=== PATIENT | male | born 1970 | race Caucasian/White ===

== ENCOUNTER 2016-12-11 17:58 | Emergency (ER) | payer OTHER ==
[2016-12-11 18:07] VITALS: BP 130/85
[2016-12-11] MEDS ORDERED: HYDROcodone/ACETAMIN 5-325 MG* 1 TAB PO ONE (18:26)
--- NOTE | 2016-12-11 18:40 | UC ---
Elbow Pain - HPI Summary HPI Summary: ABOUT A MONTH AGO LIFTED A HEAVY HERNANDEZ OUT OF THE OVEN TO THE TABLE USING ONLY HIS RIGHT HAND/ARM. FELT A STRAIN. SINCE THEN THE PAIN HAS WORSENED. PAIN IS KEEPING HIM UP AT NIGHT. CAN'T EVEN START HIS CAR WITHOUT PAIN. - History of Current Complaint Chief Complaint: UCUpperExtremity Stated Complaint: R ELBOW PAIN Time Seen by Provider: 12/11/16 18:12 Hx Obtained From: Patient Onset/Duration: Weeks, Still Present Severity Initially: Moderate Severity Currently: Moderate Pain Intensity: 8 Pain Scale Used: 0-10 Numeric Location Of Pain: Is Discrete @ - RIGHT ELBOW Character: Sharp, Aching Aggravating Factor(s): Movement Alleviating Factor(s): Rest Associated Signs And Symptoms: Negative: Swelling, Redness, Bruising, Numbness/ Tingling - Allergies/Home Medications Allergies/Adverse Reactions: Allergies Allergy/AdvReac Type Severity Reaction Status Date / Time No Known Allergies Allergy Verified 12/13/13 16:07 Home Medications: Home Medications Ibuprofen [Advil] 600 mg PO 12/11/16 [History] PMH/Surg Hx/FS Hx/Imm Hx Previously Healthy: Yes - Surgical History Surgical History: Yes Surgery Procedure, Year, and Place: CHOLECYSTECTOMY - Family History Known Family History: Negative: Hypertension - Social History Alcohol Use: Rare Substance Use Type: None Smoking Status (MU): Never Smoked Tobacco Review of Systems Constitutional: Negative Skin: Negative Respiratory: Negative Cardiovascular: Negative Gastrointestinal: Negative Musculoskeletal: Arthralgia, Decreased ROM, Edema All Other Systems Reviewed And Are Negative: Yes Physical Exam Triage Information Reviewed: Yes Appearance: Well-Appearing, No Pain Distress, Well-Nourished Vital Signs: Initial Vital Signs Temp 96.9 F 12/11/16 18:04 Pulse 92 12/11/16 18:04 Resp 18 12/11/16 18:04 BP 130/85 12/11/16 18:04 Pulse Ox 99 12/11/16 18:04 Vital Signs Reviewed: Yes Eyes: Positive: Conjunctiva Clear ENT: Positive: Hearing grossly normal Neck: Positive: Supple Respiratory: Positive: No respiratory distress, No accessory muscle use Cardiovascular: Positive: Pulses Normal Abdomen Description: Positive: Soft Musculoskeletal: Positive: No Edema, ROM Limited @ - RIGHT ELBOW EXTENSION, Other: - TTP RIGHT LATERAL EPICONDYLE Neurological: Positive: Alert Psychological: Positive: Age Appropriate Behavior Skin: Negative: rashes Elbow Pain Course/Dx - Differential Dx/Diagnosis Provider Diagnoses: RIGHT LATERAL EPICONDYLITIS Discharge - Discharge Plan Condition: Stable Disposition: HOME Prescriptions: Hydrocodone-Acetaminophen [Lorcet 5-325 mg] 1 tab PO QID PRN #20 tab MDD 4 PRN Reason: Pain Patient Education Materials: Tennis Elbow (ED) Referrals: Meghana Velez MD [Primary Care Provider] - If Needed Josse Ireland MD [Medical Doctor] - 2 Weeks Additional Instructions: USE A COUNTERFORCE BRACE TO HELP WITH SYMPTOMS. REST - AVOID REPETITIVE MOTION. SLING NEEDED FOR COMFORT. OTC NSAIDS. IF YOUR SYMPTOMS ARE PERSISTENT FOLLOW- UP WITH ORTHO. YOU MAY BENEFIT FROM STEROID INJECTION.
== END 2016-12-11 18:45 | disposition home or self-care (01) ==
LOC: UCEAST 17:58
DX: M77.11 Lateral epicondylitis, right elbow (principal)
CPT/HCPCS: 99213; G0463

== ENCOUNTER 2017-04-24 12:16 | Emergency (ER) | payer OTHER ==
[2017-04-24 13:03] VITALS: BP 117/75
--- NOTE | 2017-04-24 13:29 | UC ---
Kj Rich Stephanie, scribed for Brennen Fontenot MD on 04/24/17 at 1317 . Ear Complaint HPI - HPI Summary HPI Summary: The pt is a 46 y/o M presenting to with c/o L ear pain that began on . Symptoms include productive cough, pain in the back of neck, SOB and chest congestion (started 4 days ago). The pt states his L ear pain is located behind his ear. The L ear pain is aggravated by cough. The pt denies dental and jaw pain. - History of Current Complaint Chief Complaint: UCEar Stated Complaint: EAR PAIN COUGH Time Seen by Provider: 04/24/17 13:06 Hx Obtained From: Patient Onset/Duration: Gradual Onset, Lasting Days - 2, Still Present Severity Currently: Moderate Pain Intensity: 8 Pain Scale Used: 0-10 Numeric Aggravating Factors: Nothing Alleviating Factors: Nothing - Allergies/Home Medications Allergies/Adverse Reactions: Allergies Allergy/AdvReac Type Severity Reaction Status Date / Time No Known Allergies Allergy Verified 04/24/17 13:03 PMH/Surg Hx/FS Hx/Imm Hx Previously Healthy: Yes - Pt denies past medical hx. - Surgical History Surgical History: Yes Surgery Procedure, Year, and Place: CHOLECYSTECTOMY - Family History Known Family History: Negative: Hypertension - Social History Occupation: Employed Part-time Lives: With Family Alcohol Use: Rare Substance Use Type: None Smoking Status (MU): Never Smoked Tobacco Review of Systems Constitutional: Negative Skin: Negative Eyes: Negative ENT: Ear Ache - L ear, Nasal Discharge Respiratory: Shortness Of Breath, Cough Cardiovascular: Other - chest congestion Gastrointestinal: Negative Genitourinary: Negative Motor: Negative Neurovascular: Negative Musculoskeletal: Other: - pain in the back of neck Neurological: Negative Psychological: Negative All Other Systems Reviewed And Are Negative: Yes Physical Exam Triage Information Reviewed: Yes Vital Signs: Initial Vital Signs Temp 97.7 F 04/24/17 13:00 Pulse 85 04/24/17 13:00 Resp 12 04/24/17 13:00 BP 117/75 04/24/17 13:00 Pulse Ox 100 04/24/17 13:00 Vital Signs Reviewed: Yes - Additional Comments General: Mildly ill-appearing, no pain distress Skin: warm, color reflects adequate perfusion, dry Head: normal Eyes: EOMI, KENDRA ENT: TM normal bilaterally, Posterior pharynx: tonsils 1+ bilaterally, uvula midline. Oropharynx nml. Neck: supple, nontender Respiratory: CTA, breath sounds present Cardiovascular: RRR Abdomen: soft, nontender Bowel: present Musculoskeletal: normal, strength/ROM intact Neurological: normal, sensory/motor intact, A&O x3 Psychological: affect/mood appropriate Ear Complaint Course/Dx - Course Course Of Treatment: Medications reviewed. - Differential Dx/Diagnosis Provider Diagnoses: PAIN LEFT EAR, THROAT, AND MASTOID SINUS AREA. WILL TREAT WITH ABX FOR POSSIBLE MASTOID SINUSITIS. F/U PMD; RETURN IF WORSE. Discharge - Discharge Plan Condition: Stable Disposition: HOME Prescriptions: Amoxicillin/Clavulanate TAB* [Augmentin TAB 875*] 875 mg PO BID #20 tab Benzonatate CAP* [Tessalon 100 MG CAP*] 100 mg PO TID PRN #15 cap PRN Reason: Cough Patient Education Materials: Earache (ED) Referrals: Meghana Velez MD [Primary Care Provider] - Additional Instructions: FOLLOW UP WITH YOUR DOCTOR. GET RECHECKED FOR ANY WORSENING OF YOUR CONDITION OR QUESTIONS OR CONCERNS. The documentation as recorded by the Kj thompson Stephanie accurately reflects the service I personally performed and the decisions made by me, Brennen Fontenot MD.
== END 2017-04-24 13:33 | disposition home or self-care (01) ==
LOC: UCEAST 12:16
DX: H92.02 Otalgia, left ear (principal); R07.0 Pain in throat
CPT/HCPCS: 99212; G0463

== ENCOUNTER 2018-09-22 11:59 | Emergency (ER) | payer BC, OTHER ==
[2018-09-22 12:23] VITALS: BP 134/84
[2018-09-22] MEDS ORDERED: metroNIDAZOLE TAB* 250 MG PO ONE (12:56)
[2018-09-22] MEDS ORDERED: Amoxicillin/Clavulanate TAB* 875 MG PO ONE (12:56)
--- NOTE | 2018-09-22 12:57 | UC ---
Abdominal Pain Male HPI - HPI Summary HPI Summary: 47 yo male with hx of diverticulitis x 3 (UNCOMPLICATED). present with 1-2 day hx of progressively worsening left side abd pain no f/c no n/v/d no change in bowel habits feels like his diverticultitis in past never admitted - History of Current Complaint Chief Complaint: UCAbdominalPain Stated Complaint: LT SIDE/STOMACHPAIN Time Seen by Provider: 09/22/18 12:46 Hx Obtained From: Patient Onset/Duration: Gradual Onset Timing: Constant Severity Initially: Mild Severity Currently: Moderate Pain Intensity: 7 Pain Scale Used: 0-10 Numeric Location: Discrete At: LUQ Radiates: Yes Character: Aching, Colicy Aggravating Factor(s): Movement Alleviating Factor(s): Rest Associated Signs And Symptoms: Positive: Negative Similar Episode/Dx As:: diverticulitis x 3 - Allergies/Home Medications Allergies/Adverse Reactions: Allergies Allergy/AdvReac Type Severity Reaction Status Date / Time No Known Allergies Allergy Verified 09/22/18 12:22 PMH/Surg Hx/FS Hx/Imm Hx Previously Healthy: Yes GI/ History: Diverticulitis - Surgical History Surgical History: Yes Surgery Procedure, Year, and Place: CHOLECYSTECTOMY. knee surgery - Family History Known Family History: Negative: Cardiac Disease, Hypertension, Diabetes - Social History Alcohol Use: Rare Substance Use Type: None Smoking Status (MU): Never Smoked Tobacco Review of Systems All Other Systems Reviewed And Are Negative: Yes Constitutional: Positive: Negative Skin: Positive: Negative Eyes: Positive: Negative ENT: Positive: Negative Respiratory: Positive: Negative Gastrointestinal: Positive: Abdominal Pain Neurovascular: Positive: Negative Musculoskeletal: Positive: Negative Neurological: Positive: Negative Psychological: Positive: Negative Physical Exam Triage Information Reviewed: Yes Appearance: Well-Appearing, No Pain Distress, Well-Nourished Vital Signs: Initial Vital Signs Temp 97.9 F 09/22/18 12:16 Pulse 94 09/22/18 12:16 Resp 18 09/22/18 12:16 BP 134/84 09/22/18 12:16 Pulse Ox 99 09/22/18 12:16 Vital Signs Reviewed: Yes Eyes: Positive: Conjunctiva Clear ENT: Positive: Hearing grossly normal, Uvula midline. Negative: Nasal congestion, Nasal drainage, Tonsillar swelling, Tonsillar exudate, Hoarse voice Dental Exam: Normal Neck: Positive: Supple, Nontender, No Lymphadenopathy Respiratory: Positive: Lungs clear, Normal breath sounds, No respiratory distress Cardiovascular: Positive: RRR, No Murmur Abdomen Description: Positive: No Organomegaly. Negative: Nontender - left side abd tenderness, CVA Tenderness (R), CVA Tenderness (L), Distended, Guarding Bowel Sounds: Positive: Present Musculoskeletal: Positive: ROM Intact, No Edema Neurological: Positive: Alert Psychological Exam: Normal Skin Exam: Normal Abd Pain Male Course/Dx - Course Course Of Treatment: wishes to be rxed as out pt states he will go to ER for worsening symptoms - Differential Dx/Clinical Impression Provider Diagnosis: Diverticulitis Discharge - Sign-Out/Discharge Documenting (check all that apply): Patient Departure All imaging exams completed and their final reports reviewed: No Studies - Discharge Plan Condition: Stable Disposition: HOME Prescriptions: Amoxicillin/Clavulanate TAB* [Augmentin TAB 875*] 875 mg PO BID #14 tab metroNIDAZOLE [Flagyl 500 MG TAB] 500 mg PO TID #21 tab Patient Education Materials: Diverticulitis (ED) Forms: *Work Release Referrals: Meghana Velez MD [Primary Care Provider] - 3 Days Additional Instructions: TO ER FOR NEW OR WORSENING SYMPTOMS - Billing Disposition and Condition Condition: STABLE Disposition: Home
== END 2018-09-22 13:30 | disposition home or self-care (01) ==
LOC: UCEAST 11:59
DX: K57.92 Diverticulitis of intestine, part unspecified, without perforation or abscess without bleeding (principal)
CPT/HCPCS: 99212; A9270-GY; G0463